=== PATIENT | male | born 1995 | race Caucasian/White ===

== ENCOUNTER 2019-06-09 01:06 | Day surgery (SDC) | payer OTHER ==
[~2019-06-09] VITALS: Ht 172.7 cm; Wt 71.7 kg
[~2019-06-09 01:06] MED LIST: LOR5/325 PO
[2019-06-09 09:52] VITALS: BP 135/75
[2019-06-09] MEDS ORDERED: fentaNYL CITR 100 MCG/2 ML AMP ONE ×3 (10:17→13:11)
[2019-06-09] MEDS ORDERED: PROPOFOL EMUL(*) 10MG/ML 20 ML 20 ML ONE (10:18)
[2019-06-09] MEDS ORDERED: DEXAMETHASONE SOD PHOS 10MG/ML ONE (10:18)
[2019-06-09] MEDS ORDERED: ONDANSETRON 4 MG/2 ML VIAL ONE (10:18)
[2019-06-09] MEDS ORDERED: LIDOCAINE MPF 1% 5 ML VIAL ONE (10:18)
[2019-06-09] MEDS ORDERED: ceFAZolin(*) 1 GM VIAL 1 GM in NS(*) 0.9% 100 ML MINI-BAG 100 ML IVPB ONE (10:30)
[2019-06-09] MEDS ORDERED: MIDAZOLAM 2 MG/2 ML VIAL IVP PRN (10:30)
[2019-06-09] MEDS ORDERED: FAMOTIDINE 20 MG TAB PO ONE (10:30)
[2019-06-09] MEDS ORDERED: NORMOSOL R SOLN(*) 1000 ML BAG 1,000 ML IV PRN (10:30)
[2019-06-09] MEDS ORDERED: CELECOXIB 200 MG CAP PO ONE (10:30)
[2019-06-09] MEDS ORDERED: LIDOCAINE/SOD BICARB 8.4% SYR ID ONE (10:30)
[2019-06-09] MEDS ORDERED: ROPIVACAINE 0.2% 20 ML VIAL ONE (10:45)
[2019-06-09] MEDS ORDERED: BACITRACIN OINT 15 GM TUBE TP ONE (10:45)
--- NOTE | 2019-06-09 12:59 | RADIOLOGY IMAGING REPORT ---
FACILITY: [facility] [place] PATIENT NAME: Miguel Hdz : 1995 MR: [id number] V: [id number] EXAM DATE: ORDERING PHYSICIAN: FILIBERTO BARRETT TECHNOLOGIST: Location: [facility] Patient: Miguel Hdz : 1995 Visit/Account:[id number] Date of Sevice: 06/09/2019 Exam: C-ARM FLUORO 1 HR Indication: LEFT ANKLE ORIF, RAD Comparison: 06/06/2019 Findings: Fluoroscopy is provided for open reduction internal fixation of a lateral malleolus fractur e. Images show a lateral plate construct with good apposition of fragments. Fluoroscopy time 16.8 seconds DOSE: DAP was 0.0778 mGy*m2. IMPRESSION: Procedural fluoroscopy Report Dictated By: Jung Leon at 06/09/2019 12:51 PM Report E-Signed By: Jung Leon at 06/09/2019 12:52 PM WSN:[id number]
[2019-06-09] MEDS ORDERED: HYDR-385 PO (13:17)
[2019-06-09] MEDS ORDERED: CEPH500T7 PO (13:17)
[2019-06-09 13:30] VITALS: BP 118/63
[2019-06-09 13:45] VITALS: BP 114/74
--- NOTE | 2019-06-09 13:58 | NUR ---
1355 Pt drinking water and tolerating beverage.
[2019-06-09 14:00] VITALS: BP 119/69
[2019-06-09 14:16] VITALS: BP 121/80
[2019-06-09 14:17] VITALS: BP 133/89
--- NOTE | 2019-06-10 07:45 | OPERATIVE REPORT 1 ---
EVENT DATE: June 09, 2019 SURGEON: Tree Navarro MD ANESTHESIOLOGIST: Lawrence Logan MD ANESTHESIA: General. CONFERENCE SERVICES COORDINATOR: Chan Guzman PA-C PREOPERATIVE DIAGNOSIS Left distal fibula fracture with lateral shift of talus and noncongruent plafond. POSTOPERATIVE DIAGNOSIS Left distal fibula fracture with lateral shift of talus and noncongruent plafond with no evidence of syndesmotic injury. PROCEDURE PERFORMED 1. Reduction and fixation of distal fibular fracture, left ankle (38286). 2. Cineradiography interpretation (stress views under fluoroscopy [id number]). ESTIMATED BLOOD LOSS Minimal. IV FLUIDS 1400. TOURNIQUET TIME 44 minutes. SPECIMENS None. COMPLICATIONS None. IMPLANTS USED [place], left 9-hole plate. DESCRIPTION OF PROCEDURE The patient was brought into the operating room and placed on the OR table in supine position. After obtaining adequate general anesthesia, the left lower extremity was prepped and draped in the usual sterile fashion. The limb was exsanguinated and the tourniquet was inflated. He had quite a bit of edema and so before marking the incision, I actually had to squeeze the fluid quite a bit to allow for good palpation of the fibular access so we could identify the location of the incision. Afterwards, I made a longitudinal incision, got down to the fracture by longitudinal spreading and then both knife and tenotomy scissors dissection. The peroneal muscles and tendon units were retracted posteriorly without fully opening their sheath and also when exposing the bone, I did leave a cuff on this for lateral repair. The fracture was cleared. I then placed a sharp-sharp bone reduction forceps in the distal fragment and a fibular clamp proximally to allow for recreation of the defect and exposure of the fracture. We used a curette to clean the edges of the fracture. Subsequent to this, I was able to obtain a reduction with a sharp-sharp bone reduction forceps. Starting on the distal segment of this, I did an interfragmentary screw. We then moved the reduction forceps and then placed an additional proximal interfragmentary screw after which we placed the 9-hole plate and neutralized it with locking screws. We used the fluoroscope to obtain C-arm views to confirm that none of the screws were in the joint and in addition to this I also did fluoroscopy to confirm that there was no evidence of syndesmotic disruption and once fixation had been obtained, the syndesmosis was confirmed intact. The wound was irrigated. We deflated the tourniquet after closing the initial layer of fascia with 2-0 Vicryl. We then used 3-0 Vicryl to close the subcutaneous tissue and then 4-0 Nylon to close the skin. He was given a sugar- tong and posterior splint to maintain stability. The plan would be to remove sutures in about [address] him into a boot. He had been instructed on how to release the dressing if he gets too tight and has calf pain because he does have quite a bit of swelling even though we waited awhile to fix the fracture. TAMMIE
== END 2019-06-09 13:30 | disposition home or self-care (01) ==
LOC: OR 01:06
PROVIDERS: ATTEND Orthopaedic Surgery Hand Surgery
DX: S82.62XA Displaced fracture of lateral malleolus of left fibula, initial encounter for closed fracture (principal)
CPT/HCPCS: 27792; 76000; C1713; J0690; J1100; J2001; J2250; J2405; J2704; J2795; J3010